=== PATIENT | male | born 1945 | race Caucasian/White ===

== ENCOUNTER 2016-10-19 11:04 | Emergency (ER) | payer OTHER ==
[2016-10-19 11:15] VITALS: BP 155/74; PULSE 89; TEMP 97.9; BMI 37.6
--- NOTE | 2016-10-19 11:27 | PDOC ---
History of Present Illness - General Chief Complaint: Respiratory Stated Complaint: COUGH, CHILLS, BODY ACHES Time Seen by Provider: 10/19/16 11:17 - History of Present Illness Initial Comments: 10/19/16 12:16 Pt. is a 71 y/o male with a PMH of HTN who presents to [facility] today complaining of cough, sweating and sore throat for three days. Pt. states his symptoms all came on at once and his cough is worse when laying down. Admits to hearing difficulty in his r ear. He admits to chills, sweating, and subjective fevers. Pt. never took his temperature. He is taking Tylenol for his sore throat with minimal relief. Pt. recently traveled to [place]. Pt. did not receive a flu shot this year. Past History - Past Medical History Allergies/Adverse Reactions: Allergies Allergy/AdvReac Type Severity Reaction Status Date / Time No Known Drug Allergies Allergy Verified 10/19/16 11:12 Home Medications: Ambulatory Orders Amlodipine Besylate [Norvasc -] 10 mg PO DAILY 03/28/13 Atenolol [Tenormin -] 50 mg PO HS 03/28/13 Escitalopram Oxalate [Lexapro -] 10 mg PO DAILY 03/28/13 Acetaminophen with Codeine [Tylenol with Codeine #3 Tablet] 1 each PO HS #7 tablet MDD 1 10/19/16 Acetaminophen with Codeine [Tylenol with Codeine #3 Tablet] 1 each PO HS #7 tablet MDD 1 10/19/16 Anemia: No Asthma: No Cancer: No Cardiac Disorders: No CVA: No COPD: No CHF: No Dementia: No Diabetes: No GI Disorders: No Disorders: No HTN: Yes Hypercholesterolemia: No Liver Disease: Yes (ELEVATED ENZYMES) Suicide Attempt (Hx): No Seizures: No Thyroid Disease: No - Immunization History Immunization Up to Date: No - Psycho/Social/Smoking Cessation Hx Anxiety: No Suicidal Ideation: No Smoking Status: Yes Smoking History: Former smoker Have you smoked in the past 12 months: No Number of Cigarettes Smoked Daily: 0 Information on smoking cessation initiated: No Hx Alcohol Use: No Drug/Substance Use Hx: No Substance Use Type: None *Physical Exam - Vital Signs Last Vital Signs Temp Pulse Resp BP Pulse Ox 97.9 F 89 18 155/74 95 10/19/16 11:12 10/19/16 11:12 10/19/16 11:12 10/19/16 11:12 10/19/16 11:12 - Physical Exam Comments: 10/19/16 12:20 GENERAL: Well developed, well nourished. Awake and alert. No acute distress. HEENT: Normocephalic, atraumatic. PERRLA, EOMI. No conjunctival pallor. Sclera are non- icteric. Moist mucous membranes. Eryethmatous oropharynx. TM's with effusions b/ l. No redness of the membrane. Dulled cone of light and landmarks b/l. NECK: Supple. Full ROM. No JVD. Carotid pulses 2+ and symmetric, without bruits. No thyromegaly. No lymphadenopathy. CARDIOVASCULAR: Regular rate and rhythm. No murmurs, rubs, or gallops. Distal pulses are 2+ and symmetric. PULMONARY: No evidence of respiratory distress. Lungs clear to auscultation bilaterally. No wheezing, rales or rhonchi with good aeration to the bases. SKIN: Warm, pink, and moist. Normal capillary refill. No rashes. No jaundice. NEUROLOGICAL: Alert, awake, appropriate. Cranial nerves 2-12 intact. No deficits to light touch and temperature in face, upper extremities and lower extremities. No motor deficits in the in face, upper extremities and lower extremities. Normoreflexic in the upper and lower extremities. Normal speech. Toes are down- going bilaterally. Gait is normal without ataxia. Medical Decision Making - Medical Decision Making 10/19/16 12:26 Pt. is a 71 y/o male with a PMH of HTN who presents with three days of cough, sweats and sore throat. Most likely a viral syndrome. Will r/o influenza. Will give toradol for pain. Will re-evaluate. 10/19/16 12:43 Influenza screen is negative. Most likely common cold. Will discharge home at this time with tylenol with codiene for cough and pain. Pt. verbalizes understanding of discharge instructions and will plan to follow up with Dr. Greer in two weeks. *DC/Admit/Observation/Transfer Diagnosis at time of Disposition: Common cold - Discharge Dispostion Disposition: HOME Condition at time of disposition: Improved Admit: No - Prescriptions Prescriptions: Acetaminophen with Codeine [Tylenol with Codeine #3 Tablet] 1 each PO HS #7 tablet MDD 1 Acetaminophen with Codeine [Tylenol with Codeine #3 Tablet] 1 each PO HS #7 tablet MDD 1 - Patient Instructions Printed Discharge Instructions: DI for Common Cold Additional Instructions: You have a cold. Drink plenty of fluids and rest. You were prescribed tylenol with codiene. Take this at night time to help with the cough. During the day you may take Coricidin HBP. This is appropriate to take with your high blood pressure. Follow up with Dr. Greer during your regularly scheduled appointment. You may take ibuprofen for pain. If your symptoms worsen, new fevers or chills develop or any new symptoms arise , return to the ED
[2016-10-19] MEDS ORDERED: KETOROLAC TROMETHAMINE 30 MG/1 ML VIAL IM ONE (11:56)
[2016-10-19] MEDS ORDERED: KETOROLAC TROMETHAMINE 30 MG/1 ML VIAL ONE (12:04)
== END 2016-10-19 13:35 | disposition home or self-care (01) ==
LOC: JERFT 11:04
PROC: 3E0233Z Introduction of Anti-inflammatory into Muscle, Percutaneous Approach (ICD-10-PCS; principal; 2016-10-19)
DX: J00 Acute nasopharyngitis [common cold] (principal)
CPT/HCPCS: 87804; 96372; 99281-25

== ENCOUNTER 2018-05-25 08:28 | Day surgery (SDC) | payer OTHER ==
[2018-05-23 15:17] VITALS: BMI 39.9
[2018-05-25] MEDS ORDERED: BUPIVACAINE HCL/PF 0.25% (2.5MG/ML) 10 ML VIAL ONE (10:26)
[2018-05-25] MEDS ORDERED: LIDOCAINE HCL 1%, 10 MG/ML (20ML VIAL) ONE (10:26)
[2018-05-25] MEDS ORDERED: methylPREDNISolone ACET (DEPO) 80 MG/1 ML VIAL ONE (10:26)
[2018-05-25] MEDS ORDERED: LIDOCAINE HCL/PF 2% SDV 5ML VIAL ONE (10:42)
[2018-05-25] MEDS ORDERED: PROPOFOL 20 ML ONE (10:43)
[2018-05-25] MEDS ORDERED: BUPIVACAINE HCL/PF 0.25% (2.5MG/ML) 10 ML VIAL IJ ONE (11:13)
[2018-05-25] MEDS ORDERED: methylPREDNISolone ACET (DEPO) 80 MG/1 ML VIAL IJ ONE (11:13)
[2018-05-25] MEDS ORDERED: LIDOCAINE HCL 1%, 10 MG/ML (50 mL VIAL) IJ ONE ×2 (11:13)
[2018-05-25 12:41] VITALS: TEMP 98
[2018-05-25 16:54] VITALS: BP 145/88; PULSE 73
--- NOTE | 2018-05-26 07:44 | OP ---
DATE OF OPERATION: 05/25/2018 PREOPERATIVE DIAGNOSIS: L5-S1 spinal stenosis with back pain and lumbar radiculopathy. POSTOPERATIVE DIAGNOSIS: L5-S1 spinal stenosis with back pain and lumbar radiculopathy. ATTENDING SURGEON: Danica Madrid MD PROCEDURE: 1. L5-S1 epidural steroid injection. 2. Intraoperative fluoroscopy. ANESTHESIA: Local with IV sedation. ANESTHESIOLOGIST: David Chung MD INDICATIONS: The patient is a 73-year-old male with history of back pain and lumbar radiculopathy. Because of intractable symptoms and failure of conservative treatment, he is here for his first epidural steroid injection. He was previously on anticoagulation, which was stopped 3 days prior to procedure per the direction of the classroom assistant. The risks of the procedure include, but are not limited to, bleeding, infection, spinal headache, and neurological injury, and the risks are somewhat higher because of his underlying medical condition and prior use of anticoagulants. No guarantees were given for a favorable outcome. PROCEDURE IN DETAIL: After the patient was taken to the operating room, he was placed in the prone position with a pillow under his hips. Lumbar region was cleaned with alcohol and prepped with Betadine. A skin wheal was raised with 5 mL of 1% Xylocaine. A 22-gauge spinal needle was inserted under AP and lateral fluoroscopic guidance with a needle pointing to the center of the spinal canal at L5-S1 because of the patients bilateral symptoms. Loss of resistance technique was utilized, and there was no CSF or blood backflow. Depo-Medrol 80 mg and 1 mL of 0.25% Marcaine were injected. The needle was withdrawn and sterile bandage was applied. The patient tolerated the procedure well. He was turned back to the supine position, moving bilateral lower extremities well. He did not complain of headache. DANICA MADRID M.D. [id number]
== END 2018-05-25 12:30 | disposition home or self-care (01) ==
LOC: JASU-SURG 08:28
PROVIDERS: ATTEND Neurological Surgery
PROC: 3E0R33Z Introduction of Anti-inflammatory into Spinal Canal, Percutaneous Approach (ICD-10-PCS; 2018-05-25)
PROC: B01BZZZ Fluoroscopy of Spinal Cord (ICD-10-PCS; 2018-05-25)
PROC: 3E0R3BZ Introduction of Anesthetic Agent into Spinal Canal, Percutaneous Approach (ICD-10-PCS; principal; 2018-05-25 10:30)
DX: M54.16 Radiculopathy, lumbar region (principal); M48.07 Spinal stenosis, lumbosacral region; M54.5 Low back pain
CPT/HCPCS: 76000-TC-FY

== ENCOUNTER 2018-07-31 06:38 | Day surgery (SDC) | payer OTHER ==
[2018-07-28 11:47] VITALS: BMI 39.9
[2018-07-31 06:57] VITALS: TEMP 98.1
[2018-07-31] MEDS ORDERED: methylPREDNISolone ACET (DEPO) 80 MG/1 ML VIAL ONE ×2 (07:34→09:15)
[2018-07-31] MEDS ORDERED: BUPIVACAINE HCL/PF 0.25% (2.5MG/ML) 10 ML VIAL ONE (07:34)
[2018-07-31] MEDS ORDERED: LIDOCAINE HCL/PF 2% SDV 5ML VIAL ONE (08:29)
[2018-07-31] MEDS ORDERED: ePHEDrine SULFATE 50 MG/1 ML AMPULE ONE (08:29)
[2018-07-31] MEDS ORDERED: PHENYLEPHRINE HCL 10 MG/1 ML SINGLE DOSE VIAL ONE (08:29)
[2018-07-31] MEDS ORDERED: SUCCINYLCHOLINE CHLORIDE 200 MG/10 ML VIAL ONE (08:30)
[2018-07-31] MEDS ORDERED: PROPOFOL 20 ML ONE ×2 (08:30→08:40)
[2018-07-31] MEDS ORDERED: MIDAZOLAM HCL 2 MG/2 ML SINGLE DOSE VIAL ONE (08:30)
[2018-07-31] MEDS ORDERED: DESFLURANE GAS 240 ML BOTTLE IH ONE (08:45)
[2018-07-31] MEDS ORDERED: oxyCODONE HCL 5 MG TABLET PO PRN ×2 (08:55)
[2018-07-31] MEDS ORDERED: LACTATED RINGERS SOLUTION 1,000 ML IV SCH (09:00)
[2018-07-31] MEDS ORDERED: BUPIVACAINE HCL/PF 0.25% (2.5MG/ML) 10 ML VIAL IJ ONE (09:23)
[2018-07-31] MEDS ORDERED: methylPREDNISolone ACET (DEPO) 80 MG/1 ML VIAL IM ONE (09:24)
[2018-07-31 10:51] VITALS: BP 125/74; PULSE 69
--- NOTE | 2018-07-31 20:28 | OP ---
DATE OF OPERATION: 07/31/2018 PREOPERATIVE DIAGNOSIS: L5-S1 disk disease with right L5-S1 radiculopathy. POSTOPERATIVE DIAGNOSIS: L5-S1 disk disease with right L5-S1 radiculopathy. ATTENDING SURGEON: Hadley Madrid MD PROCEDURE: 1. Right L5-S1 epidural steroid injection. 2. Intraoperative fluoroscopy. ANESTHESIA: Local with IV sedation. ANESTHESIOLOGIST: Dr. Chung INDICATIONS: The patient is a 73-year-old male with intractable lower back pain lumbar radiculopathy. He had previously had 1 epidural steroid injection with a couple of weeks relief of symptoms. He is here for the 2nd injection. The risks of the procedure include, but are not limited to, bleeding, infection, spinal headache, and neurologic injury. The patient understands the indication for the procedure. PROCEDURE IN DETAIL: Risks, benefits, and alternatives for treatment of his lumbar condition discussed and wished to proceed. No guarantees given for a favorable outcome. He had to stop his anticoagulation regimen 3 days prior to the injection, and he understands that he is at increased risk of developing epidural infection and hematoma. After the patient was taken to the operating room, he was placed in a prone position with a pillow under his hips. Lumbar region was cleaned with alcohol and painted with Betadine. Skin wheal was raised at the site using 1% Xylocaine. A 20-gauge spinal needle was inserted under AP fluoroscopic guidance from the right-sided approach L5-S1. Loss of resistance technique was utilized. There was no CSF or blood backflow. Then 80 mg Depo-Medrol with 1 mL of 0.25% Marcaine was injected. The needle was withdrawn. Sterile bandage was applied. The patient tolerated the procedure well and was turned back to a supine position. Moving bilateral lower extremities well. HADLEY MADRID M.D. [id number]
== END 2018-07-31 10:54 | disposition home or self-care (01) ==
LOC: JASU-SURG 06:38
PROVIDERS: ATTEND Neurological Surgery
PROC: 3E0R33Z Introduction of Anti-inflammatory into Spinal Canal, Percutaneous Approach (ICD-10-PCS; 2018-07-31)
PROC: B01BZZZ Fluoroscopy of Spinal Cord (ICD-10-PCS; 2018-07-31)
PROC: 3E0R3BZ Introduction of Anesthetic Agent into Spinal Canal, Percutaneous Approach (ICD-10-PCS; principal; 2018-07-31 09:00)
DX: M51.17 Intervertebral disc disorders with radiculopathy, lumbosacral region (principal); M54.5 Low back pain
CPT/HCPCS: 76000-TC-FY

== ENCOUNTER 2018-10-23 06:03 | Day surgery (SDC) | payer OTHER ==
[2018-10-20 09:11] VITALS: BMI 36.9
[2018-10-23] MEDS ORDERED: PROPOFOL 20 ML ONE ×4 (07:25)
[2018-10-23] MEDS ORDERED: ePHEDrine SULFATE 50 MG/1 ML AMPULE ONE (07:26)
[2018-10-23] MEDS ORDERED: BUPIVACAINE HCL/PF 0.25% (2.5MG/ML) 10 ML VIAL ONE (07:39)
[2018-10-23] MEDS ORDERED: methylPREDNISolone ACET (DEPO) 80 MG/1 ML VIAL ONE (07:39)
[2018-10-23] MEDS ORDERED: LIDOCAINE 1% P/F 10 MG/ML VIAL INF ONE (08:12)
[2018-10-23] MEDS ORDERED: BUPIVACAINE HCL/PF 0.25% (2.5MG/ML) 10 ML VIAL IJ ONE (08:12)
[2018-10-23] MEDS ORDERED: LIDOCAINE HCL 1%, 10 MG/ML (20ML VIAL) NR ONE (08:12)
[2018-10-23] MEDS ORDERED: methylPREDNISolone ACET (DEPO) 80 MG/1 ML VIAL NR ONE (08:12)
[2018-10-23 09:23] VITALS: BP 155/80; PULSE 73; TEMP 97.7
[2018-10-23] MEDS ORDERED: oxyCODONE HCL 5 MG TABLET PO PRN (11:44)
[2018-10-23] MEDS ORDERED: ONDANSETRON 4 MG/2 ML VIAL IVPUSH PRN (11:44)
[2018-10-23] MEDS ORDERED: ACETAMINOPHEN 325 MG TABLET (FP) PO PRN (11:44)
[2018-10-23] MEDS ORDERED: LACTATED RINGERS SOLUTION 1,000 ML IV SCH (11:45)
--- NOTE | 2018-10-23 22:31 | OP ---
DATE OF OPERATION: 10/23/2018 PREOPERATIVE DIAGNOSES: Lumbar spinal stenosis; bilateral lower extremity radiculopathy, right greater than left. POSTOPERATIVE DIAGNOSES: Lumbar spinal stenosis; bilateral lower extremity radiculopathy, right greater than left. ATTENDING SURGEON: Hadley Madrid MD PROCEDURE: 1. Right L5-S1 epidural steroid injection. 2. Intraoperative fluoroscopy. ANESTHESIA: Local with IV sedation. ANESTHESIOLOGIST: Mr. Yunior CRNA INDICATION: The patient is a 73-year-old male with history of lower back pain and lumbar radiculopathy. He has previously responded to epidural steroid injection and is here for the 3rd injection. The risks of the procedure include, but are not limited to, bleeding, infection, spinal headache, and neurological injury. The patient understands the indication for the procedure, the procedure in detail, risks, and benefits and alternative treatments for his lumbar condition and wished to proceed. No guarantees were given for a favorable outcome. PROCEDURE IN DETAIL: After the patient was taken to the operating room, he was placed in the prone position with a pillow under his hips. The lumbar region was cleaned with alcohol, prepped with Betadine. Skin wheal raised with 1% Xylocaine. A 20-gauge spinal needle was inserted under AP, then lateral fluoroscopic guidance from right-sided approach to L5-S1. Loss of resistance technique was utilized and there was no CSF or blood backflow. Position of the needle was verified with fluoroscopic imaging in both AP and lateral planes. Then, 80 mg of Depo-Medrol and 1 mL of 0.25% Marcaine were injected and the needle was withdrawn. Sterile dressing was applied. The patient tolerated the procedure well, with unchanged exam after the injection. He is not complaining of headache. HADLEY MADRID M.D. [id number] MTDD
== END 2018-10-23 09:35 | disposition home or self-care (01) ==
LOC: JASU-SURG 06:03
PROVIDERS: ATTEND Neurological Surgery
PROC: 3E0R3BZ Introduction of Anesthetic Agent into Spinal Canal, Percutaneous Approach (ICD-10-PCS; 2018-10-23)
PROC: B01BYZZ Fluoroscopy of Spinal Cord using Other Contrast (ICD-10-PCS; 2018-10-23)
PROC: 3E0R33Z Introduction of Anti-inflammatory into Spinal Canal, Percutaneous Approach (ICD-10-PCS; principal; 2018-10-23 08:00)
DX: M48.061 Spinal stenosis, lumbar region without neurogenic claudication (principal); M54.17 Radiculopathy, lumbosacral region
CPT/HCPCS: 76000-TC-FY

== ENCOUNTER 2018-12-19 05:58 | Emergency (ER) | payer OTHER ==
[2018-12-19 06:35] VITALS: TEMP 98; BMI 36.6
--- NOTE | 2018-12-19 07:19 | PDOC ---
History of Present Illness - General Chief Complaint: Headache Stated Complaint: HEADACHE Time Seen by Provider: 12/19/18 07:15 Past History - Past Medical History Allergies/Adverse Reactions: Allergies Allergy/AdvReac Type Severity Reaction Status Date / Time No Known Drug Allergies Allergy Verified 12/19/18 06:35 Home Medications: Ambulatory Orders Amlodipine Besylate [Norvasc -] 10 mg PO DAILY 03/28/13 Atenolol [Tenormin -] 75 mg PO HS 03/28/13 Escitalopram Oxalate [Lexapro -] 10 mg PO DAILY 03/28/13 Apixaban [Eliquis] 5 mg PO BID 05/23/18 Furosemide 20 mg PO DAILY 05/23/18 Valsartan 80 mg PO DAILY 10/20/18 Gabapentin 100 mg PO TID 12/19/18 Anemia: No Asthma: No Cancer: No Cardiac Disorders: No (IRREG HEARTBEAT) CVA: No COPD: No CHF: No Dementia: No Diabetes: No GI Disorders: No Disorders: No HTN: Yes Hypercholesterolemia: No Liver Disease: Yes (ELEVATED ENZYMES) Seizures: No Thyroid Disease: No - Surgical History Abdominal Surgery: No Appendectomy: No Cardiac Surgery: No Cholecystectomy: No Lung Surgery: No Neurologic Surgery: (EPIDURAL X 2) Orthopedic Surgery: No - Immunization History Immunization Up to Date: No - Suicide/Smoking/Psychosocial Hx Smoking Status: Yes Smoking History: Never smoked Have you smoked in the past 12 months: No Number of Cigarettes Smoked Daily: 0 Information on smoking cessation initiated: No Hx Alcohol Use: No Drug/Substance Use Hx: No Substance Use Type: None Hx Substance Use Treatment: No *Physical Exam - Vital Signs Last Vital Signs Temp Pulse Resp BP Pulse Ox 98 F 74 16 121/70 97 12/19/18 06:00 12/19/18 06:00 12/19/18 06:00 12/19/18 06:00 12/19/18 06:00 *DC/Admit/Observation/Transfer - Discharge Dispostion Condition at time of disposition: Fair - Referrals Referrals: Taqueria Greer MD [Primary Care Provider] - - Patient Instructions - Post Discharge Activity
--- NOTE | 2018-12-19 07:46 | PDOC ---
History of Present Illness - General Chief Complaint: Headache Stated Complaint: HEADACHE Time Seen by Provider: 12/19/18 07:15 History Source: Patient, Significant Other Exam Limitations: No Limitations - History of Present Illness Initial Comments: Mr. Harris is a 73M with PMH of HTN, back pain, a-fib on eliquis depression presenting with four days of worsening productive cough and bilateral maxillary sinus pain. Reports clear and white sputum production, denies any hemoptysis. Reports rhinorrhea and watery eyes. Denies fever. had similar symptoms over the same duration, presented yesterday and was dx with viral URI and UTI and given abx (amox-clav). Her CXR yesterday was negative. PMH: HTN, depression, back pain Social Hx: retired, 50 pack year smoking hx quit 7 years ago, no other sick contacts Allergies: none Meds: valsartan 80mg QD, gabapentin 100 mg TID, furosemide 20 mg QD, lexapro 10 mg QD, atenolol 75 mg QHS, apixaban 5 mg BID, Norvasc 10 mg QD Timing/Duration: getting worse, other (4 days) Severity: mild Associated Symptoms: reports: cough, weakness. denies: chest pain, fever/chills , headaches, nausea/vomiting, rash, shortness of breath, syncope Past History - Past Medical History Allergies/Adverse Reactions: Allergies Allergy/AdvReac Type Severity Reaction Status Date / Time No Known Drug Allergies Allergy Verified 12/19/18 06:35 Home Medications: Ambulatory Orders Amlodipine Besylate [Norvasc -] 10 mg PO DAILY 03/28/13 Atenolol [Tenormin -] 75 mg PO HS 03/28/13 Escitalopram Oxalate [Lexapro -] 10 mg PO DAILY 03/28/13 Apixaban [Eliquis] 5 mg PO BID 05/23/18 Furosemide 20 mg PO DAILY 05/23/18 Valsartan 80 mg PO DAILY 10/20/18 Azithromycin [Zithromax 1gm Noel -] 1 gm PO DAILY #3 packet MDD 1 tab 12/19/18 Benzonatate [Tessalon Pearls -] 100 mg PO TID PRN #15 capsule MDD 3 tab Gabapentin 100 mg PO TID 12/19/18 Azithromycin [Zithromax 250mg Tablets -] 250 mg PO DAILY #6 tab 12/20/18 Anemia: No Asthma: No Cancer: No Cardiac Disorders: No (IRREG HEARTBEAT) CVA: No COPD: No CHF: No Dementia: No Diabetes: No GI Disorders: No Disorders: No HTN: Yes Hypercholesterolemia: No Liver Disease: Yes (ELEVATED ENZYMES) Seizures: No Thyroid Disease: No - Surgical History Abdominal Surgery: No Appendectomy: No Cardiac Surgery: No Cholecystectomy: No Lung Surgery: No Neurologic Surgery: (EPIDURAL X 2) Orthopedic Surgery: No - Immunization History Immunization Up to Date: No - Suicide/Smoking/Psychosocial Hx Smoking Status: Yes Smoking History: Never smoked Have you smoked in the past 12 months: No Number of Cigarettes Smoked Daily: 0 Information on smoking cessation initiated: No Hx Alcohol Use: No Drug/Substance Use Hx: No Substance Use Type: None Hx Substance Use Treatment: No Review of Systems - Review of Systems Able to Perform ROS?: Yes Is the patient limited Swedish proficient: No Constitutional: Yes: See HPI. No: Chills, Fever, Unintentional Wgt. Loss HEENTM: Yes: See HPI, Throat Pain. No: Blurred Vision, Ear Pain, Nose Bleeding , Dental Problems Respiratory: Yes: Cough. No: Shortness of Breath, SOB at Rest, Hemoptysis Cardiac (ROS): Yes: See HPI, Irregular Heart Rate (a-fib). No: Edema, Chest Tightness ABD/GI: Yes: See HPI. No: Nausea, Vomiting : Yes: See HPI. No: Dysuria Musculoskeletal: Yes: See HPI, Back Pain (chronic ) Integumentary: Yes: See HPI. No: Erythema, Rash Neurological: Yes: See HPI. No: Headache, Numbness Psychiatric: Yes: Depression Endocrine: No: Symptoms Reported Hematologic/Lymphatic: No: Symptoms Reported *Physical Exam - Vital Signs Last Vital Signs Temp Pulse Resp BP Pulse Ox 98 F 74 16 121/70 97 12/19/18 06:00 12/19/18 06:00 12/19/18 06:00 12/19/18 06:00 12/19/18 07:25 - Physical Exam General Appearance: Yes: Nourished, Appropriately Dressed HEENT: positive: EOMI, LEE, Normal Voice, Nasal Congestion, Rhinorrhea, Sinus Tenderness, Hearing Grossly Normal. negative: Pharyngeal Erythema, Tonsillar Exudate Neck: positive: Trachea midline. negative: Tender, Rigidity, Tender lateral, Tender midline, Thyromegaly Respiratory/Chest: positive: Lungs Clear, Normal Breath Sounds. negative: Chest Tender, Respiratory Distress, Accessory Muscle Use Cardiovascular: positive: Regular Rhythm, Regular Rate Vascular Pulses: Dorsalis-Pedis (R): 2+, Doralis-Pedis (L): 2+ Gastrointestinal/Abdominal: positive: Soft. negative: Tender, Organomegaly Musculoskeletal: positive: Normal Inspection. negative: CVA Tenderness Extremity: positive: Normal Capillary Refill, Normal Inspection, Normal Range of Motion Integumentary: positive: Normal Color, Dry, Warm Neurologic: positive: snack steward II-XII NML intact, Fully Oriented, Alert, Normal Mood/ Affect, Normal Response, Motor Strength 10/22 ED Treatment Course - LABORATORY CBC & Chemistry Diagram: 12/19/18 08:30 12/19/18 08:30 Medical Decision Making - Medical Decision Making 12/19/18 08:00 This is a 73M with PMH of a-fib (on eliquis) and HTN presenting with 4 days of worsening cough associated with maxillary sinus pain, rhinorrhea , and sore throat. No fever. No headache. 50 pack year smoking hx. Exam shows clear lung singleton. has been sick with similar over the past few days, no other sick contacts. Differential diagnosis includes likely viral URI, and less likely pneumonia, strep throat, and influenza. We will obtain CBC, CMP, and CXR. 12/19/18 08:55 CXR shows no acute pathology and no change from prior on 2018. Labs pending. 12/19/18 09:13 EKG shows RR 87, irregularly irregular rhythm, and atrial fibrillation, for which he is on eliquis. 12/19/18 09:47 cbc,cmp unremarkable Patient cough improved Sent Tesslon pearls, and azithromycin to pharmacy Stable for d/c with return precautions. Advised to f/u w/ PMD *DC/Admit/Observation/Transfer Diagnosis at time of Disposition: Cough URI (upper respiratory infection) Qualifiers: URI type: unspecified viral URI Qualified Code(s): J06.9 - Acute upper respiratory infection, unspecified - Discharge Dispostion Disposition: HOME Condition at time of disposition: Stable Decision to Admit order: No - Prescriptions Prescriptions: Azithromycin [Zithromax 1gm Noel -] 1 gm PO DAILY #3 packet MDD 1 tab Azithromycin [Zithromax 250mg Tablets -] 250 mg PO DAILY #6 tab Benzonatate [Tessalon Pearls -] 100 mg PO TID PRN #15 capsule MDD 3 tab PRN Reason: Cough - Referrals Referrals: Taqueria Greer MD [Primary Care Provider] - - Patient Instructions Printed Discharge Instructions: DI for Cough -- Adult Additional Instructions: Please return to the emergency department with any new or worsening symptoms or concerns. Please follow up with your primary care physician within 72 hours. Please take Zithromax once a day. Take Tesslon pearls as needed for cough relief. - Post Discharge Activity
[2018-12-19 08:54] LABS: BASO % 0.6 % (0-2.0); EOS % 2.9 % (0-4.5); HEMATOCRIT 40.8 % (35.4-49); HEMOGLOBIN 14.1 GM/dL (11.7-16.9); LYMPH % 21.9 % (8-40); MCH 34.1 pg (25.7-33.7); MCHC 34.5 g/dl (32.0-35.9); MEAN CELL VOLUME 98.7 fl (80-96); MEAN PLT VOLUME 10.1 fl (7.5-11.1); MONO % 10.3 % (3.8-10.2); NEUT % 64.3 % (42.8-82.8); PLATELET COUNT 164 K/MM3 (134-434); RBC 4.13 M/mm3 (4.00-5.60); RDW 13.1 % (11.9-15.9); WHITE BLOOD COUNT 9.4 K/mm3 (4.0-10.0)
[2018-12-19 09:18] LABS: ALBUMIN 3.7 g/dl (3.4-5.0); BILIRUBIN,TOTAL 0.7 mg/dL (0.2-1); BLOOD UREA NITROGEN 16.5 mg/dL (7-18); CALCIUM 9.1 mg/dL (8.5-10.1); CREATININE 0.8 mg/dL (0.55-1.3); POTASSIUM 4.2 mmol/L (3.5-5.1); TOT PROT 7.2 g/dl (6.4-8.2)
--- NOTE | 2018-12-19 10:02 | PDOC ---
Documentation entered by Jerson Spivey SCRIBE, acting as scribe for Lorelei Hagan MD. Lorelei Hagan MD: This documentation has been prepared by the Patric hsu Joel, SCRIBE, under my direction and personally reviewed by me in its entirety. I confirm that the documentation accurately reflects all work, treatment, procedures, and medical decision making performed by me. Attending Attestation - Resident Resident Name: Herbert Sanderson - HPI HPI: 12/19/18 10:02 The patient is a 73 year old male with a significant PMH of Afib (on Eliquis), HTN, & depression who presents to the emergency department with 4 days of productive cough. She describes her cough as productive of clear, white sputum with associated nasal congestion. The patient denies hemoptysis. He denies fever. The patient notes his was diagnosed with a UTI and viral URI yesterday. The patient denies chest pain, shortness of breath, headache, and dizziness. Denies fever, chills, nausea, vomit, diarrhea and constipation. Denies dysuria, frequency, urgency and hematuria. Allergies: NKA Past surgical history: None reported. Social history: Former smoker (50 pack years). No reported alcohol or drug use. PCP: Dr. Greer - Physicial Exam PE: 12/22/18 15:32 Agree with resident exam. PAtient is alert and in no acute distress. Lungs are clear. Heart regular rate and rhythm. Abodmen soft, non tender and non distended. extremities: no edema. - Medical Decision Making 12/22/18 15:33 Pt presents to the ED complaining of cough without shortness of breath. Lungs are clear. CXR checked to evaluate for PNA and is negative. Most likely viral URI. Will treat with tessalon perles and discharge home.
[2018-12-19 10:08] VITALS: BP 138/75; PULSE 89
--- NOTE | 2018-12-19 13:50 | EKG ---
Test Reason : Blood Pressure : / mmHG Vent. Rate : 087 BPM Atrial Rate : 101 BPM P-R Int : 000 ms QRS Dur : 084 ms QT Int : 388 ms P-R-T Axes : 000 057 040 degrees QTc Int : 466 ms ATRIAL FIBRILLATION ABNORMAL ECG WHEN COMPARED WITH ECG OF 28-MAR-2013 07:46, ATRIAL FIBRILLATION HAS REPLACED SINUS RHYTHM Confirmed by MD ABIGAIL, JOSELO ([id number]) on 12/19/2018 1:50:49 PM Referred By: Confirmed By:JOSELO HAYES MD
== END 2018-12-19 10:08 | disposition home or self-care (01) ==
LOC: JER 05:58
DX: R05 Cough (principal); I48.91 Unspecified atrial fibrillation; Z79.01 Long term (current) use of anticoagulants; I10 Essential (primary) hypertension
CPT/HCPCS: 36415; 71046-TC-FY; 80053; 85025; 93005; 93010; 99284-25

== ENCOUNTER 2025-03-28 06:19 | Day surgery (SDC) | payer OTHER ==
[2025-03-22 15:41] VITALS: BMI 40.7
[2025-03-28] MEDS ORDERED: BUPIVACAINE HCL/PF 0.5% (5MG/ML) 10 ML VIAL ONE (07:34)
[2025-03-28] MEDS ORDERED: LIDOCAINE HCL/PF 2% SDV 5ML VIAL ONE (07:34)
[2025-03-28] MEDS ORDERED: BUPIVACAINE HCL/PF 0.25% (2.5MG/ML) 10 ML VIAL ONE (07:34)
[2025-03-28] MEDS ORDERED: DEXAMETHASONE SOD PHOSPHATE 10 MG/1 ML VIAL ONE (07:35)
[2025-03-28] MEDS ORDERED: BUPIVACAINE HCL/PF 0.75% 10 ML VIAL ONE (07:35)
[2025-03-28] MEDS ORDERED: LIDOCAINE HCL/PF 1% SDV 5ML VIAL ONE (07:35)
[2025-03-28] MEDS ORDERED: ACETAMINOPHEN 500 MG TABLET (FP) PO PRN (08:51)
[2025-03-28 09:15] VITALS: RESP 18; TEMP 98.2
[2025-03-28] MEDS: LIDOCAINE HCL 1% PRESERVATIVE FREE - 30ML VIAL IJ ONE ×2 (10:37)
[2025-03-28] MEDS: IOHEXOL 180 MG/1 ML ML IJ ONE ×2 (10:38)
[2025-03-28] MEDS: DEXAMETHASONE SOD PHOSPHATE 10 MG/1 ML VIAL IVPUSH ONE ×2 (10:40)
[2025-03-28 10:58] VITALS: BP 170/61; PULSE 55
== END 2025-03-28 11:15 | disposition home or self-care (01) ==
LOC: JASU-SURG 06:19
PROVIDERS: ATTEND Pain Medicine Pain Medicine
PROC: 3E0R3BZ Introduction of Anesthetic Agent into Spinal Canal, Percutaneous Approach (ICD-10-PCS; 2025-03-28)
PROC: 3E0R33Z Introduction of Anti-inflammatory into Spinal Canal, Percutaneous Approach (ICD-10-PCS; principal; 2025-03-28 10:15)
DX: M48.061 Spinal stenosis, lumbar region without neurogenic claudication (principal); M54.16 Radiculopathy, lumbar region
CPT/HCPCS: 76000-TC-FY; J1100